=== PATIENT | female | born 1945 | race Caucasian/White ===

== ENCOUNTER 2021-08-20 06:33 | Day surgery (SDC) | payer MEDICARE, MEDICAID ==
[~2021-08-20 06:33] MED LIST: CYCLOPENTOLATE 1% OPHTH DROPS 2 ML ONE; KETOROLAC 0.45% OPHTH DROPS ONE; PHENYLEPHRINE 2.5% OPHTH 2 ML DROPS ONE; PROPARACAINE 0.5% OPHTH DROPS 15 ML ONE
[2021-08-20] MEDS ORDERED: LACTATED RINGERS 1,000 ML IV ONE (06:48)
[2021-08-20] MEDS: PROPARACAINE 0.5% OPHTH DROPS 15 ML EACHEYE ONE ×2 (07:00→07:43)
[2021-08-20] MEDS ORDERED: TRIAMCIN/MOXIFLOX OPHTHALMIC 0.6 ML VIAL IO ONE ×3 (07:11→08:41)
[2021-08-20] MEDS ORDERED: BRIMONIDINE 0.2% OPHTH DROPS 5 ML ONE (07:12)
[2021-08-20] MEDS ORDERED: EPINEPHrine 1 MG/ML AMP ONE (07:12)
[2021-08-20] MEDS ORDERED: TIMOLOL 0.5% OPHTH DROPS ONE (07:12)
[2021-08-20] MEDS ORDERED: BSS/LIDOCAINE/EPINEPHRINE 1 ML VIAL ONE (07:13)
--- NOTE | 2021-08-20 07:14 | ANESTHESIA ---
Pre-Anesthesia VS, & Labs - Diagnosis right eye senile combined cataract - Procedure right eye cataract extraction with IOL implant Vital Signs: Temp Pulse Resp BP Pulse Ox 36.5 C 95 18 159/74 H 100 08/20/21 06:49 08/20/21 06:49 08/20/21 06:49 08/20/21 06:49 08/20/21 06:49 Height: 5 ft 4 in Weight (kg): 72.4 kg Body Mass Index: 27.3 BMI Classification: Overweight - NPO >8 hours - Is Patient ?: No Home Medications and Allergies Aspirin [Aspir 81] 81 mg PO DAILY 03/27/13 FLUoxetine [PROzac] 40 mg PO DAILY 03/27/13 Gabapentin [Neurontin] 300 mg PO TID 03/27/13 Insulin Aspart [Novolog] 100 unit SQ 03/27/13 Insulin Detemir [Levemir] 40 unit SUBQ QPM 03/27/13 Levothyroxine [Synthroid] 75 mcg PO QDAC 03/27/13 Lisinopril 10 mg PO DAILY 03/27/13 Metformin HCl 500 mg PO BID 03/27/13 Metoprolol Tartrate [Lopressor] 25 mg PO DAILY 03/27/13 Simvastatin [Zocor] 10 mg PO HS 03/27/13 Allergies/Adverse Reactions: Allergies Allergy/AdvReac Type Severity Reaction Status Date / Time albuterol Allergy Tachycardia Verified 08/20/21 06:20 Penicillins Allergy Hives Verified 08/20/21 06:20 Steroids Allergy Hallucinati Uncoded 08/20/21 06:20 ons Anes History & Medical History - Anesthetic History Anesthesia Complications: reports: No previous complications - Medical History Cardiovascular: reports: Hypertension, High cholesterol Pulmonary: reports: None Gastrointestinal: reports: None Urinary: reports: None Neuro: reports: None Musculoskeletal: reports: Osteoarthritis Endocrine/Autoimmune: reports: Type 2 diabetes, HyPOthyroidism Blood Disorders: reports: None Smoking Status: Former smoker (quit 25 years ago) Psychosocial: reports: Depression History of Cancer?: No - Surgical History General: reports: Cholecystectomy Orthopedic: reports: Carpal Tunnel surgery Exam General: Alert, Oriented x3, Cooperative, No acute distress Dental: Poor dentition Mouth Openin Fingerbreadth Neck Mobility: Normal Mallampati classification: II Thyromental Distance: less than 4 cm Mental/Cognitive Status: Alert/Oriented X3, Normal for patient Plan Anesthesia Type: MAC Consent for Procedure(s) Verified and Reviewed: Yes Code Status: Attempt Resuscitation ASA classification: 2-Mild systemic disease Is this case an emergency?: No
[2021-08-20] MEDS ORDERED: MIDAZOLAM 2 MG/2 ML VIAL ONE (07:19)
[2021-08-20] MEDS ORDERED: BRIMONIDINE 0.2% OPHTH DROPS 5 ML OPTH ONE (07:42)
[2021-08-20] MEDS ORDERED: TIMOLOL 0.5% OPHTH DROPS OPTH ONE (07:42)
[2021-08-20] MEDS ORDERED: EPINEPHrine 1 MG/ML AMP IR ONE (07:42)
[2021-08-20] MEDS ORDERED: VANCOMYCIN OPHTHALMI 8MG/0.8ML 8 MG/0.8 ML SYRINGE IO ONE (07:43)
[2021-08-20] MEDS ORDERED: BSS/LIDOCAINE/EPINEPHRINE 1 ML SYRINGE IO ONE (07:43)
[2021-08-20] MEDS ORDERED: LACTATED RINGERS 900 ML IV ONE (07:57)
--- NOTE | 2021-08-20 08:06 | OPERATIVE REPORT ---
Operative Report - Other Other Information/Narrative: Date of Surgery: 08/20/21 Preop Dx: Complex, visually significant cataract right eye. Complex due to small pupil requiring mechanical dilation using a Malyugin ring. This was the first cataract surgery. Postop Dx: Same Procedure: Phacoemulsification with posterior chamber intraocular lens implant right eye Surgeon: Dr. Orestes Calhoun Anesthesia: Monitored anesthesia care Complications: None Operative Indications: This is a 76-year-old F with progressive vision loss in the right eye due to 4+ nuclear sclerotic and 2+ cortical cataract. Best corrected visual acuity was 20/250 with glare to hand motion vision in the right eye. Indications for surgery were: - Overall decrease in vision - Difficulty seeing words on a computer screen - Difficulty reading - Difficulty seeing words, closed captions, or game scores on TV - Difficulty seeing street signs - Difficulty driving in low light or at night - Difficulty driving at night because of headlights from other vehicles - Difficulty with glare or bright lights in any situation - Difficulty tracking a golf ball The patient was consented at length concerning the risks and benefits of cataract surgery after which the patient expressed a desire to proceed with surgery. Operative Procedure: The patient was taken into OR#3 and placed under monitored anesthesia care. A surgical time-out was conducted confirming correct patient, correct procedure, and correct surgical site. The patient was given topical anesthesia and then prepped and draped in the usual sterile fashion. The eye was entered at the 6 and 3 oclock positions. Intracameral Shugarcaine was injected into the anterior chamber followed by a dispersive viscoelastic. A Malyugin ring was injected into the anterior chamber and engaged with the pupillary margin at four points to expand the pupil. A continuous-tear c urvilinear capsulorhexis was performed. The nucleus was hydrodissected and phacoemulsified. The cortex was evacuated using automated infusion and aspiration. A cohesive viscoelastic was injected into the capsular bag and a 23.0 diopter intraocular lens was inserted into the bag. The Malyugin ring was disengaged from the pupillary margin and removed from the anterior chamber. Infusion and aspiration were used to evacuate the viscoelastic materials from the eye. The wounds were hydrated and the eye inflated to physiologic pressure using balanced salt solution. Approximately 0.25ml of a mixture of triamcinolone and moxifloxacin was injected trans-sclerally into the vitreous in the inferotemporal quadrant using a 30 gauge cannula. An additional 0.55ml of a mixture of triamcinolone and moxifloxacin was injected subconjunctivally in the superior quadrant for infection and inflammation prophylaxis. Wound integrity was checked with Weck-Mell sponges. The patient was taken from the operating room in good condition and given post-op instructions.
[2021-08-20 08:12] VITALS: BP 146/58
--- NOTE | 2021-08-20 14:52 | ANESTHESIA POST OP EVALUATION ---
Anesthesia Post Eval - Post Anesthesia Eval Vitals: Last Vital Signs Temp 36.4 C L 08/20/21 08:11 Pulse 86 08/20/21 08:11 Resp 18 08/20/21 08:11 BP 146/58 H 08/20/21 08:11 Pulse Ox 100 08/20/21 08:11 CV Function Including HR & BP: Stable Pain Control: Satisfactory Nausea & Vomiting: Negative Mental Status: Baseline Respiratory Status: Airway Patent Hydration Status: Satisfactory Anesthesia Complications: None
== END 2021-08-20 06:34 | disposition home or self-care (01) ==
LOC: SDS 06:33
PROVIDERS: ATTEND Ophthalmology
DX: E11.36 Type 2 diabetes mellitus with diabetic cataract (principal); H25.811 Combined forms of age-related cataract, right eye; Z79.84 Long term (current) use of oral hypoglycemic drugs; Z87.891 Personal history of nicotine dependence
CPT/HCPCS: 66982; A9270; J3490; J7120

== ENCOUNTER 2021-11-24 19:31 | Emergency (ER) | payer MEDICARE, MEDICAID ==
[2021-11-24 20:17] LABS: BASOPHILS % (AUTO) 0.3 %; EOSINOPHILS # (AUTO) 0.1 10^3/uL (0.0-0.7); EOSINOPHILS % (AUTO) 1.4 %; HCT - HEMATOCRIT 36.3 % (37.0-47.0); HGB - HEMOGLOBIN 12.2 g/dL (12.0-16.0); LYMPHOCYTES % (AUTO) 15.9 %; MEAN CORPUSCULAR HEMOGLOBIN 28.6 pg (27.0-31.0); MEAN CORPUSCULAR HGB CONC 33.6 g/dL (32.0-36.0); MEAN CORPUSCULAR VOLUME 85.2 fL (81.0-99.0); MEAN PLATELET VOLUME 9.2 fL (7.9-10.8); MONOCYTES # (AUTO) 0.6 10^3/uL (0.0-1.0); MONOCYTES % (AUTO) 10.1 %; NEUTROPHILS # (AUTO) 4.6 10^3/uL (1.5-6.6); PLT - PLATELET COUNT 236 10^3/uL (130-450); RED BLOOD COUNT 4.26 10^6/uL (4.20-5.40); RED CELL DISTRIBUTION WIDTH 13.2 % (12.0-15.0); WHITE BLOOD COUNT 6.4 x10^3/uL (4.8-10.8)
[2021-11-24 20:33] LABS: ALBUMIN 3.4 g/dL (3.2-5.5); ALBUMIN/GLOBULIN RATIO 0.9 (1.0-2.2); BILIRUBIN,TOTAL 0.6 mg/dL (0.2-1.0); CALCIUM 8.2 mg/dL (8.5-10.3); POTASSIUM 4.7 mmol/L (3.5-5.0); TOTAL PROTEIN 7.3 g/dL (6.7-8.2)
--- NOTE | 2021-11-24 20:48 | XRAY Report ---
PROCEDURE: Chest 1 View X-Ray INDICATIONS: cough TECHNIQUE: One view of the chest was acquired. COMPARISON: None. FINDINGS: Surgical changes and devices: None. Lungs and pleura: No pleural effusions or pneumothorax. Lungs are clear. Mediastinum: Mediastinal contours appear normal. Heart size is normal. Bones and chest wall: No suspicious bony lesions. Overlying soft tissues appear unremarkable. IMPRESSION: 1. No acute cardiopulmonary disease. Reviewed by: Marco Antonio Alcala MD on 11/24/2021 8:46 PM PDT Approved by: Marco Antonio Alcala MD on 11/24/2021 8:46 PM PDT Station ID: [id number]
[2021-11-24 21:06] LABS: CORONAVIRUS 229E-RESP PCR NOT DETECTED; CORONAVIRUS HKU1-RESP PCR NOT DETECTED; CORONAVIRUS NL63-RESP PCR NOT DETECTED; CORONAVIRUS OC43-RESP PCR NOT DETECTED
[2021-11-24] MEDS ORDERED: KETOROLAC 15 MG/ML VIAL IVP STA (21:07)
[2021-11-24 21:08] LABS: B. PARAPERTUSSIS- RESP PCR PAN NOT DETECTED; B. PERTUSSIS- RESP PCR PANEL NOT DETECTED; C. PNEUMONIAE- RESP PCR PANEL NOT DETECTED; HUMAN METAPNEUMOVIRUS NOT DETECTED; INFLUENZA A- RESP PCR PANEL NOT DETECTED; INFLUENZA B - RESP PCR PANEL NOT DETECTED; M. PNEUMONIAE- RESP PCR PANEL NOT DETECTED; PARAINFLUENZA VIRUS 1 NOT DETECTED; PARAINFLUENZA VIRUS 2 NOT DETECTED; PARAINFLUENZA VIRUS 3 NOT DETECTED; PARAINFLUENZA VIRUS 4 NOT DETECTED; RHINOVIRUS/ENTEROVIRUS NOT DETECTED; RSV- RESP PCR PANEL NOT DETECTED; SARS-CoV-2 -RESP PCR PANEL DETECTED
[2021-11-24] MEDS ORDERED: KETOROLAC 15 MG/ML VIAL IM STA (21:08)
[2021-11-24] MEDS ORDERED: NIRMATRELVIR/RITONAVIR PREPACK PO STA (21:18)
[2021-11-24 22:29] VITALS: BP 140/64
--- NOTE | 2021-11-25 04:41 | ED Physician Documentation ---
History of Present Illness - Stated complaint Stated Complaint: COUGH - Chief complaint Chief Complaint: Resp - History obtained from History obtained from: Patient - Additonal information Additional information: 76-year-old woman with past medical history of DM2, asthma, high blood pressure, presents with sore throat and cough is nonproductive for the past 2 days as well as full body aches that "feel like the flu". Body aches are particularly prominent in her neck and in the legs.Denies shortness of breath, chest pain, nausea, diarrhea. Review of Systems Ten Systems: 10 systems reviewed and negative Constitutional: reports: Chills, Myalgias, Fatigue Throat: reports: Sore throat Cardiac: denies: Chest pain / pressure Respiratory: reports: Cough. denies: Dyspnea PD PAST MEDICAL HISTORY - Past Medical History Past Medical History: Yes Cardiovascular: Hypertension, High cholesterol Respiratory: Asthma Neuro: None Endocrine/Autoimmune: Type 2 diabetes, HyPOthyroidism GI: None : None Musculoskeletal: Osteoarthritis Derm: Other Other Past Medical History: skin rash bilateral legs, unknown chronic - Past Surgical History Past Surgical History: Yes General: Cholecystectomy Ortho: Carpal Tunnel surgery - Present Medications Home Medications: Ambulatory Orders Medication Instructions Recorded Confirmed Aspirin [Aspir 81] 81 mg PO DAILY 03/27/13 07/18/13 FLUoxetine [PROzac] 40 mg PO DAILY 03/27/13 07/18/13 Gabapentin [Neurontin] 300 mg PO TID 03/27/13 07/18/13 Insulin Aspart [Novolog] 100 unit SQ 03/27/13 07/18/13 Insulin Detemir [Levemir] 40 unit SUBQ QPM 03/27/13 07/18/13 Levothyroxine [Synthroid] 75 mcg PO QDAC 03/27/13 06/15/15 Lisinopril 10 mg PO DAILY 03/27/13 06/15/15 Metformin HCl 500 mg PO BID 03/27/13 06/15/15 Metoprolol Tartrate [Lopressor] 25 mg PO DAILY 03/27/13 06/15/15 Simvastatin [Zocor] 10 mg PO HS 03/27/13 06/15/15 Ciprofloxacin HCl [Cipro] 500 mg PO BID 10 Days tablet 06/15/15 Hydrocodone/Acetaminophen 1 - 2 each PO Q6H PRN #14 tablet 06/15/15 [Hydrocodon-Acetaminophen 5-325] Ondansetron Odt [Zofran] 4 mg TL Q6H PRN #10 tablet 06/15/15 - Allergies Allergies/Adverse Reactions: Allergies Allergy/AdvReac Type Severity Reaction Status Date / Time albuterol Allergy Tachycardia Verified 08/20/21 06:20 Penicillins Allergy Hives Verified 08/20/21 06:20 Steroids Allergy Hallucinati Uncoded 08/20/21 06:20 ons - Social History Does the pt smoke?: No Smoking Status: Never smoker Does the pt drink ETOH?: No Does the pt have substance abuse?: No PD ED PE NORMAL - Vitals Vital signs reviewed: Yes - General General: Alert and oriented X 3, No acute distress, Well developed/nourished - HEENT HEENT: Atraumatic, PERRL, EOMI, Moist mucous membranes, Other (Mild oropharyngeal erythema) - Neck Neck: Supple, no meningeal sign - Cardiac Cardiac: RRR - Respiratory Respiratory: No respiratory distress, Clear bilaterally - Abdomen Abdomen: Non tender, Non distended - Derm Derm: Normal color, Warm and dry - Extremities Extremities: No deformity - Neuro Neuro: Alert and oriented X 3, No motor deficit, No sensory deficit - Psych Psych: Normal mood, Normal affect Results - Vitals Vitals: Vital Signs - 24 hr 11/24/21 11/24/21 11/24/21 19:48 21:59 22:29 Temperature 37.1 C 37.1 C Heart Rate 89 102 H 102 H Respiratory 16 16 16 Rate Blood Pressure 149/62 H 140/64 H 140/64 H O2 Saturation 94 99 99 Oxygen O2 Source Room air - Labs Labs: Laboratory Tests 11/24/21 11/24/21 11/24/21 20:10 20:10 20:11 WBC 6.4 RBC 4.26 Hgb 12.2 Hct 36.3 L MCV 85.2 MCH 28.6 MCHC 33.6 RDW 13.2 Plt Count 236 MPV 9.2 Neut # (Auto) 4.6 Lymph # (Auto) 1.0 L [place] # (Auto) 0.6 Eos # (Auto) 0.1 Baso # (Auto) 0.0 Absolute Nucleated RBC 0.00 Nucleated RBC % 0.0 Sodium 129 L Potassium 4.7 Chloride 95 L Carbon Dioxide 26 Anion Gap 8.0 BUN 21 H Creatinine 1.0 Estimated GFR (MDRD) 54 L Glucose 315 H Calcium 8.2 L Total Bilirubin 0.6 AST 19 ALT 14 Alkaline Phosphatase 90 Total Protein 7.3 Albumin 3.4 Globulin 3.9 Albumin/Globulin Ratio 0.9 L Lipase 27 Nasal Adenovirus (PCR) NOT DETECTED Nasal B. parapertussis DNA (PCR) NOT DETECTED Nasal Coronavir 229E PCR NOT DETECTED Nasal Coronavir HKU1 PCR NOT DETECTED Nasal Coronavir NL63 PCR NOT DETECTED Nasal Coronavir OC43 PCR NOT DETECTED Nasal Enterovir/Rhinovir PCR NOT DETECTED Nasal Influenza B PCR NOT DETECTED Nasal Influenza A PCR NOT DETECTED Nasal Parainfluen 1 PCR NOT DETECTED Nasal Parainfluen 2 PCR NOT DETECTED Nasal Parainfluen 3 PCR NOT DETECTED Nasal Parainfluen 4 PCR NOT DETECTED Nasal RSV (PCR) NOT DETECTED Nasal B.pertussis DNA PCR NOT DETECTED Nasal C.pneumoniae (PCR) NOT DETECTED Brett Human Metapneumo PCR NOT DETECTED Nasal M.pneumoniae (PCR) NOT DETECTED Nasal SARS-CoV-2 (PCR) DETECTED A PD MEDICAL DECISION MAKING - ED course ED course: 76-year-old woman presents with symptoms of COVID-19. She was advised to stop her simvastatin while taking COVID antiviral as it can have interaction. Strict return precautions discussed. Patient will follow up with her primary doctor this week for monitoring. Departure - Departure Disposition: 01 Home, Self Care Clinical Impression: COVID-19 Condition: Good Instructions: COVID-19 [facility] Statement Follow-Up: Opal Jack ARNP [Credentialed Staff Provider] - Comments: You were seen in the emergency department for COVID-19. Please use a coolmist humidifier at nighttime by the bedside. Drink lots of water and get lots of rest. You can take paxlovid, a treatment for COVID-19. Make sure that you do not take simvastatin (your cholesterol medicine) for 1 week because it has a drug interaction. You will need to follow-up with a primary care provider within 1 to 2 weeks. Return to the emergency department if you have any new or worsening symptoms or other concerns. Discharge Date/Time: 11/24/21 22:29
== END 2021-11-24 22:29 | disposition home or self-care (01) ==
LOC: ED 19:31
DX: U07.1 COVID-19 (principal); E78.00 Pure hypercholesterolemia, unspecified
CPT/HCPCS: 36415; 71045; 80053; 83690; 85025; 87633; 96372; 99282; 99284; J3490

== ENCOUNTER → 2021-11-24 | Outpatient (CLI) | payer MEDICARE, MEDICAID | END | disposition critical access hospital (66) | LOC: EMS 19:10 | DX: R05.9 Cough, unspecified (principal); M54.2 Cervicalgia; Z91.81 History of falling | CPT/HCPCS: A0425; A0429 ==

== ENCOUNTER 2022-05-08 16:06 | Outpatient (CLI) | payer MEDICARE, MEDICAID | END 2022-05-08 16:07 | disposition critical access hospital (66) | LOC: EMS 16:06 | DX: R11.2 Nausea with vomiting, unspecified (principal); R19.7 Diarrhea, unspecified; R53.1 Weakness | CPT/HCPCS: A0425; A0429 ==

== ENCOUNTER 2022-05-08 16:31 | Emergency (ER) | payer MEDICARE, MEDICAID ==
[2022-05-08] MEDS ORDERED: SODIUM CHLORIDE 0.9% 1,000 ML IV STA (16:40)
[2022-05-08] MEDS ORDERED: LOPERAMIDE 2 MG CAPSULE PO STA (16:40)
[2022-05-08] MEDS ORDERED: ONDANSETRON 4 MG/2 ML VIAL IVP STA (16:40)
--- NOTE | 2022-05-08 16:41 | ED Physician Documentation ---
History of Present Illness - Stated complaint Stated Complaint: N/V/D - History obtained from History obtained from: Patient, EMS - Additonal information Additional information: 77-year-old woman presents with a chief complaint of vomiting and diarrhea. She is here by ambulance. She has a history of diabetes for which she takes insulin but admits to not checking her blood sugars pretty much ever. Vomiting and diarrhea started this morning. She had no GI symptoms yesterday. She has no pain with this. No blood from either end. No fevers. No known sick contacts. She has an ancillary complaint of 2 months ago or so, she does not remember exactly, she fell and hit her right knee and has persistent pain there. She also hit her left elbow with persistent pain. She saw her doctor who "recommended she come to the emergency department for x-rays," but then states she has an order for x-rays that she never got done. She would like these x- rays done now. PD PAST MEDICAL HISTORY - Past Medical History Cardiovascular: Hypertension, High cholesterol Respiratory: Asthma Neuro: None Endocrine/Autoimmune: Type 2 diabetes, HyPOthyroidism GI: None : None Musculoskeletal: Osteoarthritis Derm: Other - Past Surgical History Past Surgical History: Yes General: Cholecystectomy Ortho: Carpal Tunnel surgery - Present Medications Home Medications: Ambulatory Orders Medication Instructions Recorded Confirmed Aspirin [Aspir 81] 81 mg PO DAILY 03/27/13 07/18/13 FLUoxetine [PROzac] 40 mg PO DAILY 03/27/13 07/18/13 Gabapentin [Neurontin] 300 mg PO TID 03/27/13 07/18/13 Insulin Aspart [Novolog] 100 unit SQ 03/27/13 07/18/13 Insulin Detemir [Levemir] 40 unit SUBQ QPM 03/27/13 07/18/13 Levothyroxine [Synthroid] 75 mcg PO QDAC 03/27/13 06/15/15 Lisinopril 10 mg PO DAILY 03/27/13 06/15/15 Metformin HCl 500 mg PO BID 03/27/13 06/15/15 Metoprolol Tartrate [Lopressor] 25 mg PO DAILY 03/27/13 06/15/15 Simvastatin [Zocor] 10 mg PO HS 03/27/13 06/15/15 Ciprofloxacin HCl [Cipro] 500 mg PO BID 10 Days tablet 06/15/15 Hydrocodone/Acetaminophen 1 - 2 each PO Q6H PRN #14 tablet 06/15/15 [Hydrocodon-Acetaminophen 5-325] Ondansetron Odt [Zofran] 4 mg TL Q6H PRN #10 tablet 06/15/15 - Allergies Allergies/Adverse Reactions: Allergies Allergy/AdvReac Type Severity Reaction Status Date / Time albuterol Allergy Tachycardia Verified 05/08/22 16:41 Penicillins Allergy Hives Verified 05/08/22 16:41 Steroids Allergy Hallucinati Uncoded 08/20/21 06:20 ons - Social History Does the pt smoke?: No Smoking Status: Never smoker Does the pt drink ETOH?: No Does the pt have substance abuse?: No PD ED PE NORMAL - Vitals Vital signs reviewed: Yes - General General: Alert and oriented X 3, No acute distress - HEENT HEENT: PERRL, EOMI, Pharynx benign - Neck Neck: Supple, no meningeal sign, No bony TTP - Cardiac Cardiac: RRR, No murmur - Respiratory Respiratory: No respiratory distress, Clear bilaterally - Abdomen Abdomen: Normal bowel sounds, Soft, Non tender - Back Back: No CVA TTP, No spinal TTP - Derm Derm: Normal color, Warm and dry - Extremities Extremities: Other (Some bruising over the left olecranon with full range of motion and no significant tenderness there. She is tender to the lateral joint line of the Right knee without ligamentous laxity Or effusion.) - Neuro Neuro: Alert and oriented X 3 Results - Vitals Vitals: Vital Signs - 24 hr 05/08/22 05/08/22 05/08/22 16:41 17:18 19:16 Temperature 37.1 C Heart Rate 94 89 92 Respiratory 16 16 22 Rate Blood Pressure 116/65 125/61 102/68 O2 Saturation 98 99 100 Oxygen O2 Source Room air - Labs Labs: Laboratory Tests 05/08/22 16:57 Sodium 133 L Potassium 5.8 H Chloride 99 L Carbon Dioxide 27 Anion Gap 7.0 BUN 12 Creatinine 1.0 Estimated GFR (MDRD) 54 L Glucose 466 H Calcium 9.0 Total Bilirubin 0.5 AST 18 ALT 15 Alkaline Phosphatase 162 H Total Protein 7.2 Albumin 3.3 Globulin 3.9 Albumin/Globulin Ratio 0.8 L Lipase 57 H - Rads (name of study) 4 view x-ray of the right knee demonstrates tricompartmental degenerative changes with severe joint space narrowing, no trauma Relevant Findings:: Final report received, EMP independent interpretation of test Three-view x-ray of the left elbow demonstrates no acute findings. Relevant Findings:: Final report received, EMP independent interpretation of test PD Medical Decision Making - ED course ED course: 77-year-old woman presents with what sounds like gastroenteritis. She has uncontrolled diabetes. She does not monitor Her blood sugars at home presents with what sounds like gastroenteritis. She has an ancillary complaint of now subacute injuries of the right knee and left elbow. Relevant x-rays were negative. She was treated symptomatically with IV fluids, Zofran, and Imodium for what sounds like gastroenteritis. CMP reviewed with hyperglycemia, mild hyponatremia which is probably pseudohyponatremia, and mild elevation of the potassium. This is treated with IV insulin and IV normal saline. She was feeling better after the above interventions, passed a p.o. challenge. She would like a knee brace. We discussed her x-ray and the need for follow-up with orthopedics. Discussed importance of glycemic control. Close return precautions. Departure - Departure Disposition: Home, Self Care Clinical Impression: Uncontrolled type 2 diabetes mellitus, Gastroenteritis, Osteoarthritis of right knee, Left elbow contusion Condition: Good Record reviewed to determine appropriate education?: Yes Instructions: ED Gastroenteritis Viral Follow-Up: [facility] [Provider Group] Print Language: Japanese Comments: As far as the knee goes, you do have severe arthritis and should follow-up with the orthopedic surgeon. That said if they do need to do anything, you will need to have much better control of your diabetes before you do. Your blood sugar today was 466. You have not been monitoring her blood sugars. You need to start monitoring your blood sugars and treating your diabetes more carefully. Follow-up with your doctor on Tuesday for reevaluation. Return for new or worsening symptoms. Otherwise your chief illness that you presented for today is consistent with a gastroenteritis, a viral stomach bug. These are usually gone within a day or so. If not better by tomorrow afternoon please return for reevaluation.
[2022-05-08 17:14] LABS: ALBUMIN 3.3 g/dL (3.2-5.5); ALBUMIN/GLOBULIN RATIO 0.8 (1.0-2.2); BILIRUBIN,TOTAL 0.5 mg/dL (0.2-1.0); POTASSIUM 5.8 mmol/L (3.5-5.0); TOTAL PROTEIN 7.2 g/dL (6.7-8.2)
[2022-05-08] MEDS ORDERED: INSULIN REGULAR HUMAN 100 UNIT/1 ML 10 ML MDV IVP STA (17:24)
--- NOTE | 2022-05-08 18:02 | XRAY Report ---
PROCEDURE: Elbow 3 View LT INDICATIONS: elbow inj TECHNIQUE: 3 views of the elbow were acquired. COMPARISON: None FINDINGS: Bones: No fractures or dislocations. No suspicious bony lesions. Soft tissues: No elbow joint effusion. No suspicious soft tissue calcifications. IMPRESSION: Normal left elbow Reviewed by: Edmundo Ashford on 05/08/2022 5:01 PM YANICK Approved by: Edmundo Ashford on 05/08/2022 5:01 PM [facility] Station ID: [id number]
--- NOTE | 2022-05-08 18:05 | XRAY Report ---
PROCEDURE: Knee 4 View RT INDICATIONS: knee inj TECHNIQUE: 4 views of the right knee(s) were acquired. COMPARISON: None. FINDINGS: Bones: Tricompartmental degenerative changes with medial joint space narrowing. There are tricompart mental osteophytes. Soft tissues: No joint effusion. No suspicious soft tissue calcifications. IMPRESSION: Tricompartmental degenerative changes with severe medial joint space narrowing. Reviewed by: Edmundo Ashford on 05/08/2022 5:04 PM JILLIAN Approved by: Edmundo Ashford on 05/08/2022 5:04 PM [facility] Station ID: [id number]
[2022-05-08] MEDS ORDERED: ONDANSETRON ODT 4 MG Prepack 2 TL PRN (19:19)
[2022-05-08 19:33] VITALS: BP 114/90
== END 2022-05-08 19:55 | disposition home or self-care (01) ==
LOC: EDUNIT# → ED 16:31
DX: K52.9 Noninfective gastroenteritis and colitis, unspecified (principal); M17.11 Unilateral primary osteoarthritis, right knee; S50.02XA Contusion of left elbow, initial encounter; W19.XXXA Unspecified fall, initial encounter; E11.65 Type 2 diabetes mellitus with hyperglycemia; I10 Essential (primary) hypertension; E78.00 Pure hypercholesterolemia, unspecified; E03.9 Hypothyroidism, unspecified; Z79.82 Long term (current) use of aspirin; Z79.899 Other long term (current) drug therapy; Z79.4 Long term (current) use of insulin; Z79.84 Long term (current) use of oral hypoglycemic drugs
CPT/HCPCS: 36415; 73080; 73564; 80053; 83690; 96374; 99284; A9270; J1815

== ENCOUNTER 2022-06-15 14:43 | Outpatient (CLI) | payer MEDICARE, MEDICAID ==
--- NOTE | 2022-06-15 14:02 | XRAY Report ---
PROCEDURE: Knee 3 View RT INDICATIONS: RIGHT KNEE PAIN TECHNIQUE: 3 views of the right knee(s) were acquired. COMPARISON: None. FINDINGS: Bones: No fractures or dislocations. No suspicious bony lesions. Tricompartmental joint space narrowing with associated osteophytosis. Subchondral sclerosis of the me dial tibial plateau. 9 mm calcification projecting anterior to the distal patella. Soft tissues: Mild knee joint effusion. No suspicious soft tissue calcifications or masses. IMPRESSION: No acute bony abnormality. Kellgren-Saman scale of osteoarthritis: Grade 3: moderate tricompartmental osteoarthritis. 9 mm loose joint body. Mild knee joint effusion. Reviewed by: Mani Andrea on 06/15/2022 2:01 PM PDT Approved by: Mani Andrea on 06/15/2022 2:01 PM PDT Station ID: [id number]
== END 2022-06-15 14:48 | disposition home or self-care (01) ==
LOC: DI.WOS 14:43
PROVIDERS: ATTEND Physician Assistant Surgical
DX: M17.11 Unilateral primary osteoarthritis, right knee (principal); M25.461 Effusion, right knee; M23.41 Loose body in knee, right knee

== ENCOUNTER 2022-06-24 08:00 | Outpatient (CLI) | payer MEDICARE, MEDICAID | END 2022-06-24 23:59 | disposition home or self-care (01) | LOC: LAB.N 08:00 | PROVIDERS: ATTEND Family Medicine | DX: R73.9 Hyperglycemia, unspecified (principal) | CPT/HCPCS: 82962 ==

== ENCOUNTER 2022-07-15 08:00 | Outpatient (CLI) | payer MEDICARE, MEDICAID | END 2022-07-15 23:59 | disposition home or self-care (01) | LOC: LAB.N 08:00 | PROVIDERS: ATTEND Specialist | DX: E11.9 Type 2 diabetes mellitus without complications (principal) | CPT/HCPCS: 82962 ==

== ENCOUNTER 2022-07-22 17:30 | Emergency (ER) | payer MEDICARE, MEDICAID ==
[2022-07-22] MEDS ORDERED: DEXAMETHASONE 10 MG/ML VIAL IM STA (17:50)
[2022-07-22] MEDS ORDERED: HYDROmorphone 1 MG/ML CARPUJECT IM STA (17:50)
[2022-07-22] MEDS ORDERED: KETOROLAC 60 MG/2 ML VIAL IM STA (17:50)
--- NOTE | 2022-07-22 17:53 | ED Physician Documentation ---
History of Present Illness - Stated complaint Stated Complaint: RT LEG PAIN - Chief complaint Chief Complaint: Ext Problem - History obtained from History obtained from: Patient - Additonal information Additional information: The patient comes to the emergency department chief complaint of right knee and hip pain. The patient has had both of these for a number of months since taking 2 falls in December and January. The patient did not have any fractures or dislocations, but states that the fall seem to exacerbate pain she already had in both the right hip and the right knee. The patient states that since then, she has had a lot of pain with ambulation. She has seen both her primary doctor and orthopedics and has discussed knee and hip replacements, but has been told that her blood sugar and blood pressure need to be better controlled before they can do the surgery. Patient is upset because she feels that the pain is driving her blood pressure up because it keeps her awake at night and she cannot get adequate sleep. She is walking with a cane but states that she has just felt tired from never getting enough sleep. No other complaints at this time. PD PAST MEDICAL HISTORY - Past Medical History Cardiovascular: Hypertension, High cholesterol Respiratory: Asthma Neuro: None Endocrine/Autoimmune: Type 2 diabetes, HyPOthyroidism GI: None : None Musculoskeletal: Osteoarthritis Derm: Other - Past Surgical History Past Surgical History: Yes General: Cholecystectomy Ortho: Carpal Tunnel surgery - Present Medications Home Medications: Ambulatory Orders Medication Instructions Recorded Confirmed Aspirin [Aspir 81] 81 mg PO DAILY 03/27/13 07/18/13 FLUoxetine [PROzac] 40 mg PO DAILY 03/27/13 07/18/13 Gabapentin [Neurontin] 300 mg PO TID 03/27/13 07/18/13 Insulin Aspart [Novolog] 100 unit SQ 03/27/13 07/18/13 Insulin Detemir [Levemir] 40 unit SUBQ QPM 03/27/13 07/18/13 Levothyroxine [Synthroid] 75 mcg PO QDAC 03/27/13 06/15/15 Lisinopril 10 mg PO DAILY 03/27/13 06/15/15 Metformin HCl 500 mg PO BID 03/27/13 06/15/15 Metoprolol Tartrate [Lopressor] 25 mg PO DAILY 03/27/13 06/15/15 Simvastatin [Zocor] 10 mg PO HS 03/27/13 06/15/15 Ciprofloxacin HCl [Cipro] 500 mg PO BID 10 Days tablet 06/15/15 Hydrocodone/Acetaminophen 1 - 2 each PO Q6H PRN #14 tablet 06/15/15 [Hydrocodon-Acetaminophen 5-325] Ondansetron Odt [Zofran] 4 mg TL Q6H PRN #10 tablet 06/15/15 HYDROcod/ACETAM 5/325 [[place] 5/325] 1 - 2 tablet PO Q6H PRN #14 tablet 07/22/22 predniSONE [Deltasone] 10 mg PO [id number] #42 tab 07/22/22 - Allergies Allergies/Adverse Reactions: Allergies Allergy/AdvReac Type Severity Reaction Status Date / Time albuterol Allergy Tachycardia Verified 05/08/22 16:41 Penicillins Allergy Hives Verified 05/08/22 16:41 Steroids Allergy Hallucinati Uncoded 08/20/21 06:20 ons - Social History Does the pt smoke?: No Smoking Status: Never smoker Does the pt drink ETOH?: No Does the pt have substance abuse?: No PD ED PE NORMAL - Vitals Vital signs reviewed: Yes - General General: Alert and oriented X 3, No acute distress, Well developed/nourished - HEENT HEENT: Atraumatic, PERRL, EOMI, Moist mucous membranes - Neck Neck: Supple, no meningeal sign - Respiratory Respiratory: No respiratory distress - Derm Derm: Normal color, Warm and dry, No rash - Extremities Extremities: No deformity, No edema, Other (Ambulatory with a limp, and with a cane. Deformity of right knee which appears chronic and arthritic. Mild limitation range of motion secondary to pain and stiffness. Limited range of motion of right hip also, Moderate, secondary to pain.) - Neuro Neuro: Alert and oriented X 3, No motor deficit, No sensory deficit - Psych Psych: Normal mood, Normal affect Results - Vitals Vitals: Oxygen O2 Source Room air PD Medical Decision Making - ED course Complexity details: considered differential, d/w patient ED course: The patient had already had x-rays in orthopedic clinic and I felt that there was no utility at this point to repeating the x-rays. Patient was treated symptomatically in the emergency department with IM Decadron and Dilaudid, after which she did report feeling better. We have discussed symptomatic management at home, as well as the usual indications for return. Departure - Departure Disposition: 01 Home, Self Care Clinical Impression: Arthritis Osteoarthritis of right knee Qualifiers: Osteoarthritis type: unspecified Qualified Code(s): M17.11 - Unilateral primary osteoarthritis, right knee Condition: Stable Instructions: Hip Osteoarthritis, Knee Osteoarthritis, ED Degenerative Joint Disease Prescriptions: predniSONE [Deltasone] 10 mg PO [id number] #42 tab HYDROcod/ACETAM 5/325 [[place] 5/325] 1 - 2 tablet PO Q6H PRN #14 tablet PRN Reason: Pain Comments: You have a history of quite a bit of arthritis in both your right hip and knee and that is most likely the reason for the chronic pain. You will need to continue to work with the orthopedist to optimize your other issues so that you can get your hip and knee replacements. You have been treated with doses of narcotics, anti-inflammatories, and steroid in the emergency department today. A prescription for the same has been electronically transmitted to the [facility] pharmacy in [place] at your request. Please call and make the next available appointments with both your primary doctor and your data modeling specialist. Discharge Date/Time: 07/22/22 18:49
[2022-07-22 18:39] VITALS: BP 158/72
== END 2022-07-22 18:49 | disposition home or self-care (01) ==
LOC: ED 17:30
DX: M17.11 Unilateral primary osteoarthritis, right knee (principal); I10 Essential (primary) hypertension; E11.9 Type 2 diabetes mellitus without complications; Z79.4 Long term (current) use of insulin
CPT/HCPCS: 96372; 99283; J1170

== ENCOUNTER 2022-07-29 16:13 | Outpatient (CLI) | payer MEDICARE, MEDICAID ==
[2022-07-29 20:38] LABS: BASOPHILS % (AUTO) 0.4 %; EOSINOPHILS # (AUTO) 0.1 10^3/uL (0.0-0.7); EOSINOPHILS % (AUTO) 0.9 %; HCT - HEMATOCRIT 39.3 % (37.0-47.0); HGB - HEMOGLOBIN 12.4 g/dL (12.0-16.0); LYMPHOCYTES % (AUTO) 11.5 %; MEAN CORPUSCULAR HGB CONC 31.6 g/dL (32.0-36.0); MEAN CORPUSCULAR VOLUME 88.7 fL (81.0-99.0); MEAN PLATELET VOLUME 10.4 fL (7.9-10.8); MONOCYTES # (AUTO) 0.3 10^3/uL (0.0-1.0); MONOCYTES % (AUTO) 3.8 %; NEUTROPHILS # (AUTO) 7.4 10^3/uL (1.5-6.6); NEUTROPHILS % (AUTO) 83.1 %; PLT - PLATELET COUNT 439 10^3/uL (130-450); RED BLOOD COUNT 4.43 10^6/uL (4.20-5.40); RED CELL DISTRIBUTION WIDTH 13.4 % (12.0-15.0)
[2022-07-29 20:49] LABS: ALBUMIN 3.6 g/dL (3.2-5.5); ALBUMIN/GLOBULIN RATIO 0.9 (1.0-2.2); ALKALINE PHOSPHATASE 110 IU/L (42-121); ALT ALANINE AMINOTRANSFERASE 15 IU/L (10-60); AST ASPARTATE AMINOTRANSFERASE 18 IU/L (10-42); BILIRUBIN,TOTAL 0.5 mg/dL (0.2-1.0); BUN - BLOOD UREA NITROGEN 16 mg/dL (6-20); CARBON DIOXIDE - CO2 30 mmol/L (21-32); CHLORIDE 99 mmol/L (101-111); CHOL/HDL RATIO 1.9 (<4.4); CHOLESTEROL 159 mg/dL; CREATININE 0.8 mg/dL (0.4-1.0); GFR - MDRD 70 (>89); GLUCOSE 338 mg/dL (70-100); HDL CHOLESTEROL 84 mg/dL; LDL CHOLESTEROL,CALCULATED 50 mg/dL; LDL/HDL RATIO 0.6 (<4.4); POTASSIUM 4.8 mmol/L (3.5-5.0); SODIUM 135 mmol/L (135-145); TOTAL PROTEIN 7.6 g/dL (6.7-8.2); TRIGLYCERIDES 124 mg/dL; VLDL CHOLESTEROL 25 mg/dL
[2022-07-29 21:06] LABS: THYROID STIMULATING HORMONE 1.82 uIU/mL (0.34-5.60)
[2022-07-29 21:26] LABS: ESTIMATED AVERAGE GLUCOSE 283 mg/dL (70-100); HEMOGLOBIN A1c% 11.5 % (4.27-6.07)
== END 2022-07-29 16:14 | disposition home or self-care (01) ==
LOC: LAB.N 16:13
PROVIDERS: ATTEND Nurse Practitioner Family
DX: I10 Essential (primary) hypertension (principal); E78.5 Hyperlipidemia, unspecified; E11.9 Type 2 diabetes mellitus without complications
CPT/HCPCS: 36415; 80053; 80061; 83036; 83721; 84443; 85025

== ENCOUNTER 2022-09-19 17:27 | Emergency (ER) | payer MEDICARE, MEDICAID ==
[2022-09-19 17:56] VITALS: BP 148/77
[2022-09-19] MEDS ORDERED: KETOROLAC 30 MG/ML VIAL IM STA (19:30)
--- NOTE | 2022-09-19 19:33 | ED Physician Documentation ---
History of Present Illness - Stated complaint Stated Complaint: LEG PX - Chief complaint Chief Complaint: Ext Problem - History obtained from History obtained from: Patient - History of Present Illness Pain level max: 9 Pain level now: 9 - Additonal information Additional information: Patient is a 77-year-old female who presents to the emergency department with bilateral lower extremity pain. This been ongoing for several months. She states that her doctor will not prescribe her anything for pain. Nothing seems to make it better or worse. She states that her feet do go numb and tingle sometimes. Also sometimes has pain in her back. She has a history of poorly controlled diabetes. No loss of bowel or bladder control. Review of Systems Constitutional: denies: Fever, Chills PD PAST MEDICAL HISTORY - Past Medical History Cardiovascular: Hypertension, High cholesterol Respiratory: Asthma Neuro: None Endocrine/Autoimmune: Type 2 diabetes, HyPOthyroidism GI: None : None Musculoskeletal: Osteoarthritis Derm: Other - Past Surgical History Past Surgical History: Yes General: Cholecystectomy Ortho: Carpal Tunnel surgery - Present Medications Home Medications: Ambulatory Orders Medication Instructions Recorded Confirmed Aspirin [Aspir 81] 81 mg PO DAILY 03/27/13 07/18/13 FLUoxetine [PROzac] 40 mg PO DAILY 03/27/13 07/18/13 Gabapentin [Neurontin] 300 mg PO TID 03/27/13 07/18/13 Insulin Aspart [Novolog] 100 unit SQ 03/27/13 07/18/13 Insulin Detemir [Levemir] 40 unit SUBQ QPM 03/27/13 07/18/13 Levothyroxine [Synthroid] 75 mcg PO QDAC 03/27/13 06/15/15 Lisinopril 10 mg PO DAILY 03/27/13 06/15/15 Metformin HCl 500 mg PO BID 03/27/13 06/15/15 Metoprolol Tartrate [Lopressor] 25 mg PO DAILY 03/27/13 06/15/15 Simvastatin [Zocor] 10 mg PO HS 03/27/13 06/15/15 Ciprofloxacin HCl [Cipro] 500 mg PO BID 10 Days tablet 06/15/15 Hydrocodone/Acetaminophen 1 - 2 each PO Q6H PRN #14 tablet 06/15/15 [Hydrocodon-Acetaminophen 5-325] Ondansetron Odt [Zofran] 4 mg TL Q6H PRN #10 tablet 06/15/15 HYDROcod/ACETAM 5/325 [[place] 5/325] 1 - 2 tablet PO Q6H PRN #14 tablet 07/22/22 predniSONE [Deltasone] 10 mg PO [id number] #42 tab 07/22/22 HYDROcod/ACETAM 5/325 [[place] 5/325] 1 - 2 ea PO Q6H PRN #14 tablet 09/19/22 - Allergies Allergies/Adverse Reactions: Allergies Allergy/AdvReac Type Severity Reaction Status Date / Time albuterol Allergy Tachycardia Verified 09/19/22 17:52 Penicillins Allergy Hives Verified 09/19/22 17:52 Steroids Allergy Hallucinati Uncoded 09/19/22 17:52 ons - Social History Does the pt smoke?: No Smoking Status: Never smoker Does the pt drink ETOH?: No Does the pt have substance abuse?: No PD ED PE NORMAL - Vitals Vital signs reviewed: Yes - General General: Alert and oriented X 3, No acute distress - HEENT HEENT: Moist mucous membranes - Neck Neck: Supple, no meningeal sign - Cardiac Cardiac: RRR, Strong equal pulses - Respiratory Respiratory: No respiratory distress, Clear bilaterally - Abdomen Abdomen: Soft, Non tender, Non distended - Back Back: No CVA TTP, No spinal TTP (No midline tenderness palpation or percussion. No step-off or deformity.) - Derm Derm: Warm and dry, No rash - Extremities Extremities: No edema, No calf tenderness / cord - Neuro Neuro: Alert and oriented X 3, cellophane bath mixer 2-12 intact, No motor deficit, No sensory deficit, Other (Normal bilateral lower extremity patellar and ankle jerk reflexes. Normal great toe extension bilaterally. no saddle anesthesia) - Psych Psych: Normal mood, Normal affect Results - Vitals Vitals: Vital Signs - 24 hr 09/19/22 17:45 Temperature 37.1 C Heart Rate 97 Respiratory 18 Rate Blood Pressure 148/77 H O2 Saturation 97 Oxygen O2 Source Room air PD Medical Decision Making - ED course Complexity details: reviewed old records, considered differential (No cauda equina, no spinal epidural abscess, no fracture, no aortic dissection or evidence of aneursym rupture), d/w patient ED course: Patient complaining of chronic bilateral lower extremity pain, sounds like neuropathy. Has a history of poorly controlled diabetes. No new trauma. She is requesting pain medication. We will prescribe a small amount of pain medication but informed the patient that we would not be able to prescribe pain medication from the ER for this condition further that she needs to follow-up with her doctor for further care and referral to a brush painter. No evidence of cauda equina, epidural abscess. No indication for emergent imaging. She has not had any recent falls or trauma. Patient is ambulating well in the emergency department, she drove herself and so was given Toradol as she states she does not have a ride. Will prescribe pain medication to her pharmacy. Patient counseled regarding signs and symptoms for which I believe and urgent re-evaluation would be necessary. Patient with good understanding of and agreement to plan and is comfortable going home at this time This document was made in part using voice recognition software. While efforts are made to proofread this document, sound alike and grammatical errors may occur. After discharge the patient requested prescription to be sent to [facility], this was changed. Departure - Departure Disposition: 01 Home, Self Care Clinical Impression: Neuropathy Chronic pain Qualifiers: Chronic pain type: other chronic pain Qualified Code(s): G89.29 - Other chronic pain Condition: Good Instructions: ED Chronic Pain Management, ED Neuropathy Peripheral Follow-Up: Shira Taylor ARNP [Primary Care Provider] - Within 3 Days Prescriptions: HYDROcod/ACETAM 5/325 [[place] 5/325] 1 - 2 ea PO Q6H PRN #14 tablet PRN Reason: Pain Comments: It is important that you follow-up with your PCP for further care. As gabapentin does not seem to be controlling her neuropathic pain, they may want to change you to a different medication. They will also likely want to refer you to a brush painter. I am prescribing a short course of narcotic pain medication for you. These are potentially dangerous and addictive medications that should be used carefully. These medications may constipate you. Take an [id number] stool softener (docusate) twice daily with plenty of water while taking these medications. If you go 24 hours without a bowel movement, take [id number] miralax, per package instructions. Do not drink or drive while taking these medications. If you received narcotic or sedating medications while in the emergency department, do not drive for 24 hours. Store this medication in a safe, secure place and out of reach of children. It is a violation of federal law to give or sell this medication to another person or to use in a manner other than prescribed. The ED will not refill narcotic prescriptions, including prescriptions lost or stolen. To dispose of unwanted medications: 1. [facility] at [address] in [place] has a medication drop box. They accept prescription medications (in pill form) Tuesday through Tuesday 9:00 a.m. to 5:00 p.m. 2. The [facility] accepts prescription medications (in pill form only) for disposal year round. Call for more information. 3. Contact the [facility] for the next [facility] sponsored prescription drug collection event. , [phone], or [phone]; Forms: PCP List Discharge Date/Time: 09/19/22 19:49
== END 2022-09-19 19:49 | disposition home or self-care (01) ==
LOC: ED 17:27
DX: E11.42 Type 2 diabetes mellitus with diabetic polyneuropathy (principal); Z79.4 Long term (current) use of insulin; Z79.84 Long term (current) use of oral hypoglycemic drugs
CPT/HCPCS: 96372; 99283

== ENCOUNTER 2022-10-07 11:39 | Outpatient (CLI) | payer MEDICARE, MEDICAID | END 2022-10-07 11:40 | disposition EMS.NT | LOC: EMS 11:39 | DX: R53.1 Weakness (principal) ==

== ENCOUNTER 2022-12-20 13:33 | Outpatient (CLI) | payer MEDICARE, MEDICAID ==
[2022-12-20 18:44] LABS: CALCIUM 9.9 mg/dL (8.5-10.3); POTASSIUM 4.8 mmol/L (3.5-4.5)
[2022-12-20 21:14] LABS: ESTIMATED AVERAGE GLUCOSE 171 mg/dL (70-100); HEMOGLOBIN A1c% 7.6 % (4.27-6.07)
== END 2022-12-20 13:34 | disposition home or self-care (01) ==
LOC: LAB.N 13:33
PROVIDERS: ATTEND Nurse Practitioner Family
DX: E11.8 Type 2 diabetes mellitus with unspecified complications (principal)
CPT/HCPCS: 36415; 80048; 83036

== ENCOUNTER 2023-07-04 15:15 | Outpatient (CLI) | payer MEDICARE, MEDICAID ==
--- NOTE | 2023-07-13 17:31 | XRAY Report ---
PROCEDURE: Chest 2V INDICATIONS: ACUTE COUGH TECHNIQUE: 2 views of the chest were acquired. COMPARISON: Prior chest radiograph dated 11/24/2021 FINDINGS: Surgical changes and devices: None. Lungs and pleura: No pleural effusions or pneumothorax. Airspace opacity involves the left lung base ; otherwise lungs are clear. Mediastinum: Mediastinal contours appear normal. Heart size is normal. Bones and chest wall: No suspicious bony lesions. Overlying soft tissues appear unremarkable. IMPRESSION: Airspace opacity involving the left lung base consistent with atelectasis versus aspiration or pneumo jamee. Recommend clinical correlation and follow-up. Reviewed by: KI Casas on 07/13/2023 5:30 PM PDT Approved by: Mady De La Torre MD on 07/13/2023 5:30 PM PDT Station ID: [id number]
== END 2023-07-04 15:30 | disposition home or self-care (01) ==
LOC: DI.N 15:15
PROVIDERS: ATTEND Physician Assistant Medical
DX: R05.1 Acute cough (principal); R91.8 Other nonspecific abnormal finding of lung field

== ENCOUNTER 2023-11-24 13:35 | Outpatient (CLI) | payer MEDICARE, MEDICAID ==
[2023-11-24 14:30] LABS: ALBUMIN 3.5 g/dL (3.2-5.5); ALBUMIN/GLOBULIN RATIO 1.1 (1.0-2.2); BILIRUBIN,TOTAL 0.4 mg/dL (0.2-1.0); CALCIUM 9.1 mg/dL (8.5-10.3); CREATININE 0.9 mg/dL (0.6-1.3); TOTAL PROTEIN 6.8 g/dL (6.4-8.9)
[2023-11-24 19:58] LABS: ESTIMATED AVERAGE GLUCOSE 143 mg/dL (70-100); HEMOGLOBIN A1c% 6.6 % (4.27-6.07)
== END 2023-11-24 13:36 | disposition home or self-care (01) ==
LOC: LAB 13:35
PROVIDERS: ATTEND Family Medicine
DX: E11.40 Type 2 diabetes mellitus with diabetic neuropathy, unspecified (principal)
CPT/HCPCS: 36415; 80053; 83036